=== PATIENT | female | born 1960 | race Caucasian/White ===

== ENCOUNTER 2023-09-15 09:22 | Day surgery (SDC) | payer BC, SELFPAY ==
[2023-09-07 13:51] VITALS: BMI 38.7
[2023-09-15] VITALS (14 sets, daily range): BP systolic 86–132; BP diastolic 43–72; PULSE 50–82; RESP 12–21; TEMP 36.3–37.2; O2SAT 93–100; BMI 38.7
--- NOTE | 2023-09-15 | DI.RAD.S_ITS ---
PROCEDURE: XR HIP W PEL IF DONE LT 2V INDICATIONS: LT HIP ANTERIOR TECHNIQUE: AP pelvis and lateral view of the hip acquired. COMPARISON: [facility], XR PELVIS WITH BILATERAL LATERAL HIPS, 08/14/2023, 8:51. FINDINGS: Bones: Intraoperative image demonstrating left hip arthroplasty. Hardware appears intact with good anatomic alignment. IMPRESSION: Intraoperative left hip arthroplasty. Dictated by: Ana Palmer M.D. on 09/15/2023 at 17:12 Approved by: Ana Palmer M.D. on 09/15/2023 at 17:13
--- NOTE | 2023-09-15 06:00 | DI.RAD.S_ITS ---
PROCEDURE: XR HIP W PEL IF DONE LT 2V INDICATIONS: ELY TECHNIQUE: AP pelvis and lateral view of the hip acquired. COMPARISON: [facility], ANTONIO, XR HIP W PEL IF DONE LT 2V, 09/15/2023, 11:36. FINDINGS: Bones: Patient is status post left hip arthroplasty, with hardware components in expected positions. The hip joint appears congruent. The visualized bony structures appear intact. Soft tissues: Overlying postoperative changes are noted. No suspicious soft tissue densities. IMPRESSION: Expected post-operative appearance of a hip arthroplasty. Near severe degenerative changes are seen at the right hip joint also. Dictated by: Jay Callejas M.D. on 09/15/2023 at 13:37 Approved by: Jay Callejas M.D. on 09/15/2023 at 13:37
[2023-09-15] MEDS: CEFAZOLIN 2 GM/100 ML PREMIX 100 ML IV ×2 (10:00→19:49)
--- NOTE | 2023-09-15 10:13 | PM.PREOP ---
Pre-operative Note Interval Note History & Physical reviewed/Exam performed by Physician: Yes Changes to H&P: No
[2023-09-15] MEDS: ACETAMINOPHEN 325 MG TABLET 975 MG PO (10:16)
[2023-09-15] MEDS: MELOXICAM 7.5 MG TABLET PO (10:16)
[2023-09-15] MEDS: LACTATED RINGERS 1,000 ML 42 ML IV ×2 (10:17→11:46)
[2023-09-15] MEDS: ROPIVACAINE/EPI/CLONIDINE/KET 50 ML SYRINGE INJ (10:35)
[2023-09-15] MEDS: TRANEXAMIC ACID 1,000 MG VIAL 1000 MG INJ (10:35)
--- NOTE | 2023-09-15 11:16 | SUR.OPER ---
Supine on padded [place] table with bilateral legs secured in padded positioning boots and suspended in positioning spars, operative leg in traction per surgeon. Head on one pillow. Arms secured on padded armboards <90 degrees abduction. Padded perineal post in place per surgeon.
[2023-09-15] MEDS: ALBUMIN HUMAN 12.5 GM/50 ML VIAL IV (12:19)
--- NOTE | 2023-09-15 12:53 | P.OP_ITS ---
Operative Date/Time/Diagnoses Date of procedure: 09/15/23 Pre-op diagnosis: Left hip osteoarthritis Post-op diagnosis: same Procedure & Clinicians Procedure: Left uncemented total hip arthroplasty through direct anterior approach Same procedure as scheduled: Yes Surgeon: Connor Garcia Pharmacy Informaticist: Bettye Palmer Anesthesia Type: Spinal, Sedation and Peripheral nerve block Operative Notes Estimated Blood Loss (mL): 450 Procedure in detail: Left Uncemented Direct Anterior Total Hip Arthroplasty: Implants: Left Depuy Total Hip Arthroplasty: * Depuy Star Gription size 58 cup?with 40 mm screw * Depuy Actis femoral stem size 7 high offset? * 36 mm +12 ceramic femoral head? Procedure Summary: This 62-year-old female patient has a BMI of 39 and 2 severely arthritic and painful hips. She plans to undergo a staged bilateral total hip arthroplasty. Today we began with the left side which is more symptomatic side. Surgery was made more challenging by the size of her pannus. We taped this to the medenvision retractor liao on the contralateral side of the table but due to the size of her pannus this caused her body to roll slightly to the nonoperative side. We compensated for this by adjusting the angle of the x-ray beam. Additionally, the size of her thigh made it difficult to manipulate the acetabular component into an appropriate position with a straight handled cup zipper setter chainstitch so I utilized a Fuchs to manipulate the cup into appropriate abduction and anteversion and then used a secondary impactor to impact it into place. Because of that sequence I utilized a screw for supplementary fixation in the acetabular component. I utilized a conjoined tendon release on the femoral side to minimize the amount that the broach would hit the skin in her anterior thigh during broach insertion and removal. The Jori soft tissue retractor did provide protection against severe skin abrasions during the broaching process. I initially trialed with a 6 standard offset stem and a +9 head as the operative side was 11 mm short relative to the nonoperative side which she intends to have replaced in the future and I wanted to ensure that I lengthened her sufficiently. With that construct in place I had instability with external rotation to 115? and appeared to have both decreased offset and decreased length on fluoroscopic images. I therefore transitioned to a high offset neck trial and a +12 head. This resolved the instability with maximum external rotation and improved fluoroscopic parameters. On the AP hip image the broach appeared undersized. This was backed up by the broach being rotationally unstable when I returned to the broaching position. I removed the size 6 broach, removed some lateral bone, and sank a size 7 broach down to the same position the size 6 broach had been in previously when I had done my initial calcar planing. As the size 6 and size 7 broaches have the same neck parameters I placed the final components, a 7 high offset stem and a +12 head. Procedure in Detail: This patient was seen preoperatively and evaluated for hip pain which was refractory to numerous nonoperative treatment modalities. Their hip pain cor related with radiographic changes demonstrating significant degeneration in the hip joint. The risks and benefits of continued nonoperative management versus operative management were discussed at length and all of the patient?s questions were answered. Additional educational materials providing further details beyond our discussion in clinic were provided via a publicly available patient educatio n video which included the incidence of medical complications associated with total hip arthroplasty, reasons for revision following total hip arthroplasty, and patient satisfaction rates following total hip arthroplasty. That video can be accessed at [email or web address] . With this understanding of the risks inherent to the procedure, the patient elected to move forward with operative management. Following preoperative optimization, the patient was scheduled for surgery. The patient was met in the preoperative holding area the day of the procedure and all questions were answered. The patient?s nares were swabbed with betadine in order to decolonize them from MRSA. Informed consent was signed and the operative limb was marked with indelible ink.? The patient was brought back to the operating room where anesthesia was induced. The patient was transferred to the Bradford table and all bony prominences were padded. The operative site was prepped and draped in the usual sterile fashion. Prior to incision, tranexamic acid and cefazolin were administered. Operative templating images were displayed demonstrating the anticipated implant sizes and correct operative extremity. A timeout procedure was performed verifying the patient?s identity, medical comorbidities, allergies, relevant medications, anesthesia type and the surgical plan. All present were in agreement. The assistance of a physician insurance assistant was required for positioning, room setup, soft tissue retraction and wound closure. Without this assistance, the procedure would have been significantly more challenging and time consuming.?? A direct anterior approach to the hip was utilized. This was performed with a longitudinal incision through a Heuter interval. The incision was planned 2 cm distal and 2 cm lateral to the ASIS extending towards the lateral patella, in line with the muscle body of the TFL. Following incision, the subcutaneous tissue was dissected while taking care to avoid injury to the lateral femoral cutaneous nerve. The fascia overlying the TFL was identified by dissecting off the overlying fat and identifying perforating vessels to the TFL. The TFL fascia was incised and dissected away from the medial border of the TFL. A cobra retractor was placed over the superior femoral neck between the abductors and the hip capsule and used to reflect the TFL laterally. A [place] self-retainer was then placed in the distal aspect of the wound between the TFL and the rectus femoris. This was tensioned to open up the direct anterior interval and the lateral circumflex vessels were identified and coagulated using electrocautery. The floor of the TFL fascia was incised, exposing the pericapsular fat overlying the hip capsule. A second cobra retractor was placed on the inferior femoral neck. A double-bent soft tissue retractor was placed on the anterior wall of the acetabulum and used to tension the reflected head of rectus femoris, which was then released in order to limit soft tissue tension. A capsulotomy was made in the midline of the anterior hip capsule in line with the femoral neck ending at the vastus tubercle. The double-bent retractor was removed in order to limit the amount of time that a soft tissue retractor remained on the anterior wall and protect the femoral nerve. Tag stitches were placed in the superior and inferior leaflets of the hip capsule. An Jori soft tissue retractor was introduced over the tag stitches and tensioned in the interval between the rectus femoris and the TFL in order to retract and protect those muscles. The cobra retractors were replaced intracapsularly, with one over the superior neck in the pocket created by the base of the greater trochanter and the other on the femoral head. The capsulotomy was extended laterally to the base of the greater trochanter and medially to the lesser trochanter. This required externally rotating the hip. Once the lesser trochanter had been identified, a neck cut was planned according to measurements from preoperative templating. A ruler was cut at the length measured between the superior aspect of the lesser trochanter and the collar of the prosthesis. This line was extended towards the inferior aspect of the lateral cobra retractor to plan a cut which would leave minimal residual femoral neck laterally. The neck was cut at 60 degrees of external rotation along that line. A second cut was performed to remove a large napkin ring and facilitate head extraction. The napkin ring cut and femoral head were removed.?? A broad anterior wall retractor was placed between the labrum and the anterior capsule so that the anterior capsule would prevent capturing and pinching the femoral nerve anteriorly. An additional retractor was placed on the posterior wall. External rotation and traction were applied through the Bradford table so that the cut surface of the femoral neck would not restrict access to the acetabulum. The labrum was excised sharply and the pulvinar was excised with electrocautery to limit bleeding from branches of the obturator artery. Acetabular reamers were selected based on preoperative templating and measurements of the excised femoral head. These were introduced into the acetabulum. Fluoroscopy was utilized to replicate a standing AP pelvis radiograph by centering over the pelvis, rotating until there was appropriate symmetry between the obturator foramen, and introducing caudal tilt to match the position of the pubic symphysis relative to the sacrococcygeal junction according to the patient?s anatomy. Fluoroscopy was utilized to ensure appropriate reaming depth. Once satisfied with the reaming depth corresponding to the preoperative template and the pinch fit between the columns, an appropriate sized acetabular cup was selected which would provide 1 mm of press-fit. This cup was introduced and manipulated until appropriate abduction and anteversion angles were obtained with careful attention to appropriate abduction and anteversion angles as evaluated by the position of the cup relative to the anterior and posterior jason of the acetabulum and the AP fluoroscopy which recreated the patient?s standing radiograph. The cup was impacted into place. One screw was placed to provide additional fixation. Peripheral osteophytes were removed. The acetabular liner was then placed with care to ensure locking of the locking mechanism.? Attention was then turned to the femur. All retractors were removed, traction was released, a retractor was placed in the interval between the hip capsule and the gluteus minimus, and the hip was externally rotated to 90 degrees. Traction was applied through the Bradford table to tension the lateral capsule and this was released using electrocautery. Traction was released and a Bradford hook was placed posteriorly around the proximal femur at the level of the vastus ridge. The table height was lowered in order to restrict the tension on the anterior structures during hip hyperextension to limit the risk of femoral nerve palsy. With traction off and the hip at 90 degrees of external rotation, the hip was hyperextended and adducted while manually elevating the femur away from the acetabulum with the Bradford hook to ensure it would not be caught behind the greater trochanter. An asymmetric retractor was placed over the calcar and a broad double-pronged retractor was placed over the greater trochanter. The tag stitch capturing the lateral leaflet of the capsule was moved to the medial side, leaving the conjoined and piriformis tendons isolated in the face of the greater trochanter. The hip was externally rotated and elevated. A release of the conjoined tendon was necessary in order to obtain adequate exposure for broaching. The canal was opened with an opening broach and a rasp was used to remove cancellous bone. A rongeur was used to remove the residual lateral bone at the base of the greater trochanter to avoid placing the stem in varus. The femur was then broached to the appropriate sized stem yielding good rotational fit and fill of the canal as well as appropriate version of the stem trial. Neck and head trials were placed, all retractors were removed and the hip was returned to neutral abduction and extension. I then reduced the hip. I initially trialed with a 6 standard offset stem and a +9 head as the operative side was 11 mm short relative to the nonoperative side which she intends to have replaced in the future and I wanted to ensure that I lengthened her sufficiently. With that construct in place I had instability with external rotation to 115? and appeared to have both decreased offset and decreased length on fluoroscopic images. I therefore transitioned to a high offset neck trial and a +12 head. This resolved the instability with maximum external rotation and improved fluoroscopic parameters. On the AP hip image the broach appeared undersized. This was backed up by the broach being rotationally unstable when I returned to the broaching position. I removed the size 6 broach, removed some lateral bone, and sank a size 7 broach down to the same position the size 6 broach had been in previously when I had done my initial calcar planing. As the size 6 and size 7 broaches have the same neck parameters I placed the final components, a 7 high offset stem and a +12 head. The ceramic head was impacted onto a clean dry trunnion All retractors were removed and the hip was reduced. A dilute mixture of betadine and peroxide was used to bathe the soft tissues during final flu oroscopic assessment. Appropriate component positioning was confirmed on an AP pelvis radiograph with the operative and nonoperative legs in 40 degrees of external rotation, evaluating leg length and offset. Appropriate stem fill was evaluated on AP and lateral hip radiographs. No fractures were identified on these radiographs. There was no hip instability with maximum external rotation as well as a 45 degree drop test. The hip was copiously irrigated with pulse lavage. The capsule was closed with absorbable interrupted suture. The TFL fascia was closed with barbed suture while carefully protecting the lateral femoral cutaneous nerve from entrapment. A mixture of Ropivacaine, Epinephrine, Clonidine and Toradol was infiltrated throughout the soft tissues. The skin was closed with 2-0 and 3-0 sutures. Surgical glue was applied and a soft dressing was placed.??The sponge, instrument and needle counts were reported as being correct at the end of the case.??No obvious complications occurred. The patient was transferred from the Bradford table back to a stretcher. The patient emerged from anesthesia without difficulty and was taken to the PACU in a stable condition.? Plan for aftercare: * Anterior hip precautions * Weightbearing as tolerated * Aspirin 81 twice per day for DVT prophylaxis * Anticipate discharge home today or tomorrow depending on how she mobilizes this afternoon * Change into normal clothes upon arrival on the hospital floor * Mobilize in the halls as much as is logistically possible. If physical therapy is unavailable for mobilization, then patient should mobilize with nursing staff * Multimodal pain regimen with no IV opioids ordered * Apply ice machine to operative hip. Ensure that sufficient ice is in the chamber for the pad to remain cold * Follow up at [facility] in 2 weeks * Detailed postoperative instructions available at [email or web address]
[2023-09-15] MEDS: fentaNYL 100 MCG/2 ML INJ IV ×2 (13:18→13:23)
[2023-09-15] MEDS: OXYCODONE IR 5 MG TABLET PO ×3 (13:33→22:37)
[2023-09-15] MEDS: HYDROMORPHONE 1 MG INJ IV (13:35)
[2023-09-15] MEDS: IBUPROFEN 600 MG TABLET PO ×2 (14:56→19:48)
[2023-09-15] MEDS: ACETAMINOPHEN 325 MG TABLET 650 MG PO ×2 (14:57→19:48)
[2023-09-15] MEDS: LACTATED RINGERS 1,000 ML 100 ML IV (14:57)
[2023-09-15] MEDS: ONDANSETRON 4 MG ODT PO (15:15)
--- NOTE | 2023-09-15 16:13 | PT.IIE ---
Current Diagnoses Unilateral primary osteoarthritis, left hip (09/15/23) Surgery Performed Operation Date: 09/15/23 10:45 Actual Procedures p Total Hip Arthroplasty/Anterior Approach(Left) - Connor Garcia MD Surgical History (Last Updated 09/07/23 @ 14:10 by Jojo Vann, RN) Hx of arthroscopy of left knee (~2003) Hx of cholecystectomy (~2001) Hx of tonsillectomy Medical History (Last Updated 09/07/23 @ 14:10 by Jojo Vann RN) Rogers's palsy (~2018) Glaucoma Osteoarthritis Physical Therapy Inpatient Evaluation/Re-Eval M1 PT/OT-IP Prior Functional Status Start: 09/15/23 17:40 Freq: NEEDED Status: Active Protocol: Document 09/15/23 16:13 AB (Rec: 09/15/23 17:58 AB [id number]) Medical Review Prior Functional Status Medical History Reviewed Yes Communication able to make needs known; pt with slow responses to questions and instructions Mobility and Gait pt stated that she was modified independent with all mobilities and ambulation without AD but started using a SPC for outdoor mobility for 1 month already and had used a 4WW for indoor mobility the last 2 weeks due to hip pain Social History Household Members spouse Living Arrangements House Number of Floors (Floors) One Floor Number of Stairs To Enter/Railing? 2 steps without rails to enter : has 2 grab bars attached to edge of door Home Environment Standard Height Toilet,Walk in Shower Home Equipment Four Wheel Walker,Straight Cane Additional Social History Comment pt has an adjustable bed; if needed , pt has a chair recliner that she has been sleeping on for a few months now but prefers to be able to use her bed again M2 PT-IP Current Condition Start: 09/15/23 17:40 Freq: NEEDED Status: Active Protocol: Document 09/15/23 16:13 AB (Rec: 09/15/23 17:58 AB [id number]) Physical Therapy Current Condition Current Condition Evaluation Date 09/15/23 Treatment Diagnosis s/p L ELY anterior; difficulty in walking Onset Date 09/15/23 M3 PT-IP Subjective Start: 09/15/23 17:40 Freq: NEEDED Status: Active Protocol: Document 09/15/23 16:13 AB (Rec: 09/15/23 17:58 AB [id number]) Subjective Physical Therapy Visit Type Type Initial Evaluation Visit Start Time 16:13 Visit Stop Time 17:35 Number of LIQUOR DEPARTMENT MANAGER Visits 0 Physical Therapy Visit Comments Patient Comments agreeable to do PT Therapy Pain Assessment Pain When Pain Assessed At Rest Pain Present Pain Present Pain Reported Location Left Hip Scale Used pain scale not stated Pain Behaviors Guarding,Holding Area Pain Management Techniques Apply Cold,Distraction, Modification of Treatment,Re- positioning,Timing of Activity with Medications M4 PT-IP Mobility and Gait Start: 09/15/23 17:40 Freq: NEEDED Status: Active Protocol: Document 09/15/23 16:13 AB (Rec: 09/15/23 17:58 AB [id number]) PT-Bed Mobility Assessment Supine to Sit Supine to Sit Maximum Assistance Sit to Supine Sit to Supine Maximum Assistance PT-Transfer Assessment Sit to and From Stand Sit to and from Stand Moderate Assistance,1 Person Assistance,Use of Upper Extremities Equipment Transfer Assistive Device Gait Belt,Front Wheeled Walker Orthotic/Prosthetic Devices or Brace: No Comments Mobility Comments pt supine in bed and spouse in room with pt. pt stated that she is not sure if she wants to move. encouraged pt and agreed. obtained PLOF and home set up from pt. post-op folder provided and reviewed contents to pt. educated pt and spouse regarding pt's L hip anterior precautions. pt requiring cues to recall. BP in supine: 129/79. pt completed supine to sit max A and max cues. pt usually gets in/out towards R side of bed. pt able to sit on EOB SBA. c /o lightheadedness. BP in sittin/69. pt sat for a few more minutes and BP checked again: 135/66. completed sit to stand mod A and cues. pt was able to march in place mod A. able to take steps forward and then backwards 2 ft using FWW mod A . pt took side steps towards HOB for positioning mod A and cues using fWW. pt completed sit to supine max A and max cues. positioned pt in bed. call light and table placed within reach. Gait Assessment Gait Gait Assistance Required: Moderate Assistance,1 Person Assist Distance (Feet) 2 Able to Maintain Weight Bearing Status Yes During Gait Assistive Devices Assistive Device Gait Belt,Front Wheeled Walker Orthotic/Prosthetic Devices or Brace: No Gait Deviations General Gait Pattern Decreased Feet Clearance Factors Limiting Gait Function Factors Limiting Gait Function Decreased Activity Tolerance, Decreased Strength,Difficulty Following Directions,Limited Range of Motion,Pain,Poor Balance,Poor Safety Awareness PT-Balance Assessment Sitting Balance and Reactions Static Sitting Balance Ability Good Dynamic Sitting Balance Ability Good Standing Balance and Reactions Static Standing Balance Ability Fair Dynamic Standing Balance Ability Poor Device Used FWW M5 PT-IP Objective Assessments Start: 09/15/23 17:40 Freq: NEEDED Status: Active Protocol: Document 09/15/23 16:13 AB (Rec: 09/15/23 17:58 AB [id number]) Orientation Orientation/Cognition Level of Alertness Alert Orientation Name,Place,Situation Language Function Ability No Deficits Noted Safety Awareness Decreased Safety Awareness Gross Range of Motion Lower Extremity ROM Assessment Within Functional Limits Strength Lower Extremity Strength Assessment Bilaterally Impaired Comments Strength Comments RLE: 4-/5 LLE: 3+/5 Coordination Assessment Gross Coordination Gross Coordination WNL Muscle Tone Muscle Tone WNL Yes M6 PT-IP Treatment Start: 09/15/23 17:40 Freq: NEEDED Status: Active Protocol: Document 09/15/23 16:13 AB (Rec: 09/15/23 17:58 AB [id number]) Physical Therapy Treatment Exercises Exercises Heel Slides Education Education Provided Precautions,Weight Bearing Status,Post-Op Packet,Safety M7 PT-IP Assessment and Plan Start: 09/15/23 17:40 Freq: NEEDED Status: Active Protocol: Document 09/15/23 16:13 AB (Rec: 09/15/23 17:58 AB [id number]) PT Summary Assessment and Plan Potential Rehabilitation Potential Fair Status of Condition at Evaluation Evolving Summary Impairments Pain,ROM,Strength,Balance, Coordination,Sensation,Tone, Cognition,Bed Mobility, Transfers,Gait,Activity Tolerance Assessment Summary pt is a 62 y/o F s/p L ELY anterior approach POD 0. pt has L hip anterior precautions and is WBAT. pt requiring max A for bed mobility, mod A for sit to stand and was able to take a few step using FWW mod A ~ 2 ft. pt just had surgery this morning and still had difficulty following directions with slower responses and cues for precautions. Pt will likely progress in mobility during hospital stay. caregiver training set up for tomorrow at 1030 am. will continue to assess progress. Goals Bed Mobility Goal Minimal Assistance Transfer Goal Standby Assistance,Front Wheeled Walker Gait Goal Standby Assistance,Front Wheel Walker Gait Distance 150 Other Goals improve ambulation using 4WW/ LRAD ~ 200 ft mod I up/down 2 steps using SPC/OUTPATIENT SERVICES DIRECTOR CGA Days to Meet Goals 5 Frequency of Treatment Frequency Of Treatment Twice a Day Treatment Plan Physical Therapy Treatment Plan Bed Mobility Training,Transfer Training,Gait Training, Therapeutic Exercise,Balance Retraining,Post Op Education, Discharge Planning,Hot or Cold Pack,Neuromuscular Re-ed, Coordination Retraining,Manual Therapy Precautions Anterior Hip Precautions No Hip Extension,No Hip External Rotation Weight Bearing Status Weight Bearing Status Weight Bear as Tolerated Allowed Weight Bearing Amount (enter % LLE WBAT or #) (%) Recommendations To Nursing Amount of Assist Needed 1 Person Assist Discharge Recommendations PT Discharge Recommendations Home with Assistance,Home Health,Outpatient PT Equipment Needed for Home Before FWW Discharge Transportation Needs at Discharge Private Vehicle,Wheelchair/ Cabulance
[2023-09-15] MEDS: DOCUSATE 100 MG CAPSULE PO (20:42)
[2023-09-15] MEDS: ASPIRIN EC 81 MG TABLET PO (20:42)
--- NOTE | 2023-09-15 20:43 | PM.PN.1 ---
Subjective Subjective Interval history: Patient seen postoperatively. Resting comfortably. No acute distress. Pain well controlled. Ice placed on thigh. Dressing clean dry and intact. Flexing and extending hallux and ankle. Active quadriceps function. Reports that she has not ambulated much yet. Made some progress with physical therapy. Plan for additional mobilization tomorrow morning and discharge home tomorrow Exam Vital Signs (past 8 hours): - 09/15/23 13:09 09/15/23 13:14 09/15/23 13:19 Temperature 98.6 F Pulse Rate 70 67 59 L Respiratory Rate 18 12 21 Blood Pressure 90/48 L 95/49 L 97/43 L Pulse Oximetry 93 96 97 Oxygen Delivery Method Room Air Room Air Room Air Oxygen Flow Rate 09/15/23 13:24 09/15/23 13:30 09/15/23 13:45 Temperature 98.0 F Pulse Rate 56 L 59 L 57 L Respiratory Rate 18 12 16 Blood Pressure 86/43 L 98/50 L 101/43 L Pulse Oximetry 97 99 95 Oxygen Delivery Method Nasal Cannula Room Air Oxygen Flow Rate 2 09/15/23 14:04 09/15/23 14:10 09/15/23 14:30 Temperature 97.8 F Pulse Rate 59 L 59 L 55 L Respiratory Rate 16 16 16 Blood Pressure 104/54 L 119/62 102/68 Pulse Oximetry 99 96 95 Oxygen Delivery Method Room Air Oxygen Flow Rate 09/15/23 15:00 09/15/23 16:00 09/15/23 17:00 Temperature Pulse Rate 50 L 58 L 61 Respiratory Rate 16 16 16 Blood Pressure 112/64 128/72 132/58 L Pulse Oximetry 100 99 99 Oxygen Delivery Method Oxygen Flow Rate 09/15/23 20:00 Temperature 97.3 F L Pulse Rate 82 Respiratory Rate 17 Blood Pressure 121/53 L Pulse Oximetry 97 Oxygen Delivery Method Oxygen Flow Rate 0 Oxygen Delivery Method Room Air Oxygen Flow Rate 0 PFSH Medical History (Updated 09/07/23 @ 14:10 by Jojo Vann RN) Osteoarthritis 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
[2023-09-16] MEDS: CEFAZOLIN 2 GM/100 ML PREMIX 100 ML IV (02:48)
[2023-09-16] MEDS: ACETAMINOPHEN 325 MG TABLET 650 MG PO ×2 (02:51→08:33)
[2023-09-16] MEDS: IBUPROFEN 600 MG TABLET PO ×2 (02:51→08:32)
[2023-09-16 06:05] LABS: Hematocrit 27.4 % (36-46); Hemoglobin 9.6 g/dL (12.0-16.0)
[2023-09-16] MEDS: OXYCODONE IR 5 MG TABLET PO ×2 (06:51→12:00)
[2023-09-16 08:00] VITALS: BP 103/61; PULSE 72; RESP 16; TEMP 36.2; O2SAT 98
[2023-09-16] MEDS: ASPIRIN EC 81 MG TABLET PO (08:32)
[2023-09-16] MEDS: DOCUSATE 100 MG CAPSULE PO (08:32)
[2023-09-16] MEDS: DORZOLAMIDE/TIMOLOL OPHTH 10 ML 1 DROPS EYE-BOTH (08:33)
--- NOTE | 2023-09-16 09:00 | P.DS_ITS ---
History of Present Illness History of Present Illness Chief complaint: Left ELY anterior *OPB* Narrative: Samantha is a pleasant 62 year old female who is POD#1 s/p L ELY by Dr. Garcia. Patient states she is doing very well today, pain is mild to moderate and well- controlled with oral pain medication. Urinating well without issue. Did some mobilization yesterday but we will need to work with PT again today prior to discharge. Endorses some weakness/stiffness in the left hip, discussed this is normal for POD#1 s/p ELY d/t swelling, pain. Lives at home with who is willing and able to aid in patient's postop recovery, she also has a son who lives nearby for additional assistance if needed. She has ice machine, 2 walkers, shower chair and potty riser at home already. She has her postop physical therapy appointments scheduled with [facility] on [place]. Has picked up her postop pain medications already as well. VSS. Denies fever, chills, chest pain, shortness breath, nausea, vomiting. Operative Date/Time/Diagnoses Date of procedure: 09/15/23 Pre-op diagnosis: Left hip osteoarthritis Post-op diagnosis: same Procedure & Clinicians Procedure: Left uncemented total hip arthroplasty through direct anterior approach Same procedure as scheduled: Yes Surgeon: Connor Garcia Collective Bargaining Specialist: Bettye Palmer Anesthesia Type: Spinal, Sedation and Peripheral nerve block Operative Notes Estimated Blood Loss (mL): 450 Procedure in detail: Left Uncemented Direct Anterior Total Hip Arthroplasty: Implants: Left Depuy Total Hip Arthroplasty: * Depuy [place] Gription size 58 cup?with 40 mm screw * Depuy Actis femoral stem size 7 high offset? * 36 mm +12 ceramic femoral head? Discharge Providers Provider Discharge Date: 09/16/23 Primary care physician: Nadine Pitts MD Consults: 09/15/23 06:00 Consult to Anesthesiology Routine Comment: Consulting Provider: Anesthesiologist Reason for consultation: Regional block for post operative pain control Has provider been notified: No 09/15/23 14:09 Consult to Discharge Planning Routine Comment: Consult to Occupational Therapy Evaluate & Treat Comment: Physician Instructions: Evaluate and treat Consult to Physical Therapy Evaluate & Treat Comment: Physician Instructions: post op ELY protocol Discharge provider: Bettye Palmer PA-C Summary Hospital Course Discharge Diagnosis: Stable status post left ELY Hospital Course: Uncomplicated hospital course Exam Vital Signs (past 8 hours): Oxygen Delivery Method Room Air Oxygen Flow Rate 0 Narrative Exam Narrative: Lying in bed comfortably during her interview today. Awake, alert, oriented x3. SCDs on and functioning. Resp Effort & Inspection: normal respiratory effort Cardio Other: Brisk capillary refill. Regular rate. Skin Other: No rash. Extrem Other: Intact, clean, dry and functioning ian dressing in place over the left anterior hip. 5/5 strength with DF, PF, EHL. Calf soft and nontender bilaterally Gross sensation intact throughout bilateral lower extremities. Psych Appearance: grossly normal Speech and Movement: speech and movement normal Objective Labs 09/16/23 05:47 Labs: Laboratory Results - last 24 hr 09/16/23 05:47 Hgb 9.6 L Hct 27.4 L PFSH Medical History (Updated 09/07/23 @ 14:10 by Jojo Vann RN) Osteoarthritis 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 Discharge Assessment & Plan Assessment and Plan Assessment: Left hip osteoarthritis status post left total hip arthroplasty, stable. Plan of Treatment: 1) plan to discharge to home today with /family pending PT evaluation. 2) continue multimodal pain management with ice to the hip for additional pain control. Has postop pain medications at home already. 3) ASA b.i.d. for DVT prophylaxis. 4) Start outpatient physical therapy to work on range of motion and mobility. Weightbearing as tolerated, maintain anterior hip precautions. 5) keep dressing intact, clean, dry until 2 week postop appointment. No soaking the incision site in pools or tubs. No topical ointments or creams to the incision site. 5) Follow up at [facility] orthopedics in 2 weeks for a postop appointment and wound check. All patient's questions were answered, she demonstrates understanding and is in agreement with the plan. Call our office if any questions or concerns arise. Discharge Plan Discharge Plan Patient Disposition: Home Provider Discharge Comment: [email or web address] Discharge orders & Medications Discharge Orders: Discharge (Order); Ordered 09/16/23 Ordered By: Bettye Palmer Prescriptions: New aspirin [Adult Low Dose Aspirin] 81 mg tablet,delayed release (DR/EC) 81 mg PO BID Qty: 90 0RF docusate sodium 100 mg Capsule 100 mg PO BID PRN (Reason: constipation) Qty: 60 0RF ondansetron 4 mg Tablet,Disintegrating 4 mg PO Q8H PRN (Reason: Nausea) Qty: 10 0RF oxycodone 5 mg Tablet 5 mg PO Q4-6H PRN (Reason: Pain, Severe (7-10)) Qty: 30 0RF Continued acetaminophen 500 mg Tablet 500 - 1,500 mg PO TID PRN (Reason: Pain) dorzolamide-timolol 22.3-6.8 mg/mL drops 6.8 drp EYE-BOTH DAILY meloxicam 15 mg tablet 15 mg PO DAILY Follow up/Referrals: Nadine Pitts MD [Primary Care Provider] - Connor Garcia MD [Physician] - (Follow up at [facility] as scheduled in 2 weeks. 09/28/2023 at 1:00 p.m. ) Diet/Activity/Treatments Diet: Diet as Tolerated Activity: Weightbearing as tolerated, maintain anterior hip precautions. Work with outpatient physical therapy to improve strength and mobility. Cold/Heat Therapy: Ice to the hip for additional pain control Skin/Wound/Dressing Care Report to your healthcare provider any signs of infection, such as:: chills, fever, night sweats, unusual drainage and unusual redness Dressing: Keep dressing intact, clean and dry until 2 week post-op appointment. No soaking the incision site in pools or tubs. No topical ointments or creams to the incision site. Visit Report/Discharge Packet Instructions: DI for Hip Replacement Stand Alone Forms: Patient Portal/API Discharge Data Primary Care Provider: Nadine Pitts Attending Provider: Connor Garcia
--- NOTE | 2023-09-16 10:33 | PT.IPTN ---
Current Diagnoses Unilateral primary osteoarthritis, left hip (09/15/23) Surgery Performed Operation Date: 09/15/23 10:45 Actual Procedures p Total Hip Arthroplasty/Anterior Approach(Left) - Connor Garcia MD Physical Therapy Treatment Note M2 PT-IP Current Condition Start: 09/15/23 17:40 Freq: NEEDED Status: Active Protocol: Document 09/15/23 16:13 AB (Rec: 09/15/23 17:58 AB [id number]) Physical Therapy Current Condition Current Condition Evaluation Date 09/15/23 Treatment Diagnosis s/p L ELY anterior; difficulty in walking Onset Date 09/15/23 M3 PT-IP Subjective Start: 09/15/23 17:40 Freq: NEEDED Status: Active Protocol: Document 09/16/23 11:43 TS (Rec: 09/16/23 11:51 TS [id number]) Subjective Physical Therapy Visit Type Type Treatment Note Visit Start Time 10:33 Visit Stop Time 11:11 Number of PRINCIPAL CLERK Visits 1 Physical Therapy Visit Comments Patient Comments Pt found resting in bed, spouse in room, pt is agreeable to PT. Therapy Pain Assessment Pain When Pain Assessed At Rest Pain Present Pain Present Pain Reported M4 PT-IP Mobility and Gait Start: 09/15/23 17:40 Freq: NEEDED Status: Active Protocol: Document 09/16/23 11:43 TS (Rec: 09/16/23 11:51 TS [id number]) PT-Bed Mobility Assessment Supine to Sit Supine to Sit Minimal Assistance Sit to Supine Sit to Supine Minimal Assistance,1 Person Assistance Scooting Scooting to Edge of Bed Contact Guard Assistance PT-Transfer Assessment Sit to and From Stand Sit to and from Stand Minimal Assistance,1 Person Assistance,Use of Upper Extremities Comments Mobility Comments PT recalled 2/2 hip precautions. Supine to sit Guerita for LLE, spouse assisted LLE to EOB. STS from bed x2 Guerita with FWW, spouse was instrcuted in and donned gait belt. She ambulated with a slow step to gait ~40'CGA from spouse, pt demonstrated good carryover. She performed stairs x2 on platform step with CUSTOMER ENGAGEMENT REPRESENTATIVE from spouse and therapist Susie. Sit to supine into bed Guerita for LLE. Pt was left in bed, RN notified. Gait Assessment Gait Gait Assistance Required: Contact Guard Assist,1 Person Assist Distance (Feet) 40 Able to Maintain Weight Bearing Status Yes During Gait Assistive Devices Assistive Device Gait Belt,Front Wheeled Walker Orthotic/Prosthetic Devices or Brace: No Gait Deviations General Gait Pattern Antalgic,Decreased Stride Length,Decreased Feet Clearance,Step-to Gait Factors Limiting Gait Function Factors Limiting Gait Function Decreased Activity Tolerance, Decreased Strength,Difficulty Following Directions,Limited Range of Motion,Pain,Poor Balance,Poor Safety Awareness Comments Gait Comments See mobility comments PT-Balance Assessment Sitting Balance and Reactions Static Sitting Balance Ability Good Dynamic Sitting Balance Ability Fair Standing Balance and Reactions Static Standing Balance Ability Fair Dynamic Standing Balance Ability Fair Device Used FWW M5 PT-IP Objective Assessments Start: 09/15/23 17:40 Freq: NEEDED Status: Active Protocol: Document 09/15/23 16:13 AB (Rec: 09/15/23 17:58 AB [id number]) Orientation Orientation/Cognition Level of Alertness Alert Orientation Name,Place,Situation Language Function Ability No Deficits Noted Safety Awareness Decreased Safety Awareness Gross Range of Motion Lower Extremity ROM Assessment Within Functional Limits Strength Lower Extremity Strength Assessment Bilaterally Impaired Comments Strength Comments RLE: 4-/5 LLE: 3+/5 Coordination Assessment Gross Coordination Gross Coordination WNL Muscle Tone Muscle Tone WNL Yes M6 PT-IP Treatment Start: 09/15/23 17:40 Freq: NEEDED Status: Active Protocol: Document 09/16/23 11:43 TS (Rec: 09/16/23 11:51 [id number]) Physical Therapy Treatment Education Education Provided Precautions,Weight Bearing Status,Post-Op Packet,Safety M7 PT-IP Assessment and Plan Start: 09/15/23 17:40 Freq: NEEDED Status: Active Protocol: Document 09/16/23 11:43 TS (Rec: 09/16/23 11:51 [id number]) PT Summary Assessment and Plan Potential Rehabilitation Potential Fair Summary Impairments Pain,ROM,Strength,Balance, Coordination,Sensation,Tone, Cognition,Bed Mobility, Transfers,Gait,Activity Tolerance Progress Towards Goals Progressing Toward Goals Assessment Summary Samantha is making progress with her mobility. She is Guerita for bed mobility and Guerita for STS with FWW. She progressed her gait to ~40'CGA with FWW. She performed stairs x2 with CUSTOMER ENGAGEMENT REPRESENTATIVE ModA, pt had no buckling or LOB. Spouse was instructed in and performed bed mobility, gait belt, ambulation and stair training. PT is recommending Home with 21/11 and outpatient PT. Goals Bed Mobility Goal Minimal Assistance Transfer Goal Standby Assistance,Front Wheeled Walker Gait Goal Standby Assistance,Front Wheel Walker Gait Distance 150 Other Goals improve ambulation using 4WW/ LRAD ~ 200 ft mod I up/down 2 steps using SPC/CUSTOMER ENGAGEMENT REPRESENTATIVE CGA Days to Meet Goals 5 Frequency of Treatment Frequency Of Treatment Twice a Day Treatment Plan Physical Therapy Treatment Plan Bed Mobility Training,Transfer Training,Gait Training, Therapeutic Exercise,Balance Retraining,Post Op Education, Discharge Planning,Hot or Cold Pack,Neuromuscular Re-ed, Coordination Retraining,Manual Therapy Precautions Anterior Hip Precautions No Hip Extension,No Hip External Rotation Weight Bearing Status Weight Bearing Status Weight Bear as Tolerated Allowed Weight Bearing Amount (enter % LLE WBAT or #) (%) Recommendations To Nursing Amount of Assist Needed 1 Person Assist Discharge Recommendations PT Discharge Recommendations Home with 21/11 Assist Available,Outpatient PT Equipment Needed for Home Before FWW Discharge Transportation Needs at Discharge Private Vehicle,Wheelchair/ Cabulance
--- NOTE | 2023-09-16 10:48 | CM.DANOTE ---
Initial DCP Assessment Visit Note Reviewed EMR and team rounds for status updates. Met with pt at bedside to introduce self and role, pt was found to be resting comfortably, expressing readiness to d/c home after working with PT and her spouse with caregiver training. Pt and spouse reside in their own home independently, her spouse will transport her home after PT this morning. Payor: out of state [employer] Attending: Dr. Garcia Pt is a 62 year-old F post-op day 1 following her L-total hip arthroplasty surgery. She shares that once this hip heals, that she will also be getting her R-hip done as well. Pt's spouse went and got her all of the DME yesterday that she will need for home recovery, and she already has a plan for f/c wound check visit with Ortho. She denies any d/c resources or needs from this PSYCHOLOGICAL OPERATIONS OFFICER at this time. Will plan to continue to follow her until she leaves should she need any further assistance. 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 No Advance Directives on File No History Provided By Patient,Medical Record Has Patient been admitted in last 30 No days? Prior Living Arrangements House Household Members spouse Type of transporation used prior to Drives own vehicle admit Independent with ADL's No: modified independent w/4- WW Is patient alert and oriented? Yes DME Already Rented / Owned Bath Bench,Elevated Toilet Seat,FWW / Walker Patient/Family Preference OP PT Therapy Barriers to Discharge No Discharge Plan Home Referrals Initiated None needed Review Status In Process Please Provide Date Initial DC 09/16/23 Assessment Was Performed Pre-Anesthesia Assessment Start: 09/07/23 13:51 Freq: Status: Complete Protocol: Document 09/07/23 13:51 CAB (Rec: 09/07/23 14:32 CAB [id number]) Pre-Anesthesia Assessment Patient Information Reviewed Via Phone Assessment Assessment Completed With Patient Diagnostic Results BMP/CMP,CBC,EKG Comment Outside labs/EKG scanned Primary Care Provider Nadine Pitts Comment PCP visit 07/04/23, clearance form 08/14/23 scanned and in surgery folder Seen Specialist in Last 12 Months Yes Specialist Seen Opthamologist/Asphalt Surface Heater Operator, Orthopedist Primary Language Irish Underwriting Support Manager Required No Height 167.64 cm Weight 108.862 kg Body Mass Index (BMI) 38.7 Hearing Ability Normal Visual Assist Glasses Dentition Type Teeth, Natural Present Barriers to Learning None Hx Anesthesia Reactions No Hx Family Anesthesia Reaction No Hx Malignant Hyperthermia No Hx Blood Transfusions No Anesthesia Review Requested No Wrapping Clerk No alcohol intake current alcohol intake frequency holidays/special occasions only Smoking Status Never smoker Substance Use Type does not use Pain Present Pain Reported Musculoskeletal Symptoms Abnormal Gait,Difficulty Walking,Joint Pain History of Falling (Recent or History of No ) Patient is completely paralyzed or No completely immobile Prosthesis or Orthotic Device Cane,Front Wheel Walker Mental Status Oriented to own ability Is patient on oxygen? No Does patient have ALVARENGA/SOB No Hx Sleep Apnea No Currently Taking a Beta Han No Hx Chest Pain No Hx SOB No Hx Syncope or Dizziness No Anti-Coagulant Therapy No Has a Qualification Engineer No Cardiac Testing No Hx Pacemaker/ICD No Pacemaker Rep Required? No Cardiac Clearance Received No Diet Type At Home Regular Dysphagia No Gastrointestinal Symptoms None Urinary Catheter Present No Hx Urinary Self Catheterization No Diabetes No HgbA1C 5.2 Date 08/15/23 Patient No Lactating No Hx Drug Resistant Organism No Presence of External or Internal Medical No Devices Received a COVID vaccine? Yes Received all doses? No Marital Status Lives With spouse Current Living Arrangements House Number of Floors (Floors) One Floor Number of Stairs To Enter/Railing? 2 Support System Spouse Does the Patient Have Assistance After Yes Surgery Patient Discharge Plan Description Return Home Comment Pt advised same day surgery per surgeon Feels Safe in Current Environment Yes Been Physically Hurt or Threatened By a No Person in Current Environment Do you have thoughts of harming yourself None or others? Are you currently considering suicide? No Do you have a plan to hurt yourself or No Plan others? Do You Have Any Spiritual Beliefs That No May Affect Your HC Choices? Do You Have Any Cultural Practices That No May Affect Your HC Choices? Comment Religious Who Can We Speak to About Patient's Care Family, friends Identifying Code for Release of Patient Declines to issue Information Health Care Proxy/Next of Kin Valentino () Health Care Proxy Emergency Contact Name Jus Aguirre (son) Emergency Contact Advance Directives? No Power of Hoop Punch And Coiler Operator Helper No PAC Instructions Do not shave/clip surgical site,Durable medical equipment ,Medications to take/avoid, Nasal antibiotic,No ETOH/ petroleum product on skin DOS, NPO,Pre-surgical wash,Sensory aids,Sturdy shoes/comfortable clothes,Do not bring valuables and remove jewelry
== END 2023-09-16 14:40 | disposition home or self-care (01) ==
LOC: OR 09:23 → AC 09:24
PROVIDERS: PCP Family Medicine; Referring Provider Orthopaedic Surgery Sports Medicine; Visit Provider Orthopaedic Surgery Adult Reconstructive Orthopaedic Surgery
PROC: (CPT 27130; principal; 2023-09-15 10:45)
DX: M16.12 Unilateral primary osteoarthritis, left hip (principal)
CPT/HCPCS: 27130; 36415; 73502; 76000; 85014; 85018; 97116; 97162; 97530; C1776; J0690; J1170; J2250; J2704; J3010; P9041

== ENCOUNTER 2023-12-22 06:05 | Day surgery (SDC) | payer BC, SELFPAY ==
[2023-09-15 14:35] VITALS: BMI 38.7
[2023-12-11 13:29] VITALS: BMI 38.7
[2023-12-22] VITALS (16 sets, daily range): BP systolic 83–126; BP diastolic 32–82; PULSE 70–92; RESP 10–18; TEMP 36.1–37.1; O2SAT 93–98; BMI 36.3
--- NOTE | 2023-12-22 | DI.RAD.S_ITS ---
PROCEDURE: XR HIP W PEL IF DONE RT 2V INDICATIONS: RT ANTERIOR HIP TECHNIQUE: AP pelvis and lateral view of the hip acquired. COMPARISON: [facility], [place], XR HIP W PEL IF DONE LT 2V, 09/15/2023, 13:10. FINDINGS: For operative images demonstrating new right hip arthroplasty. There is good anatomic alignment. Stable appearance of previously placed left hip arthroplasty. IMPRESSION: Intraoperative right hip arthroplasty placement. Dictated by: Ana Palmer M.D. on 12/22/2023 at 21:34 Approved by: Ana Palmer M.D. on 12/22/2023 at 21:36
--- NOTE | 2023-12-22 06:00 | DI.RAD.S_ITS ---
PROCEDURE: XR HIP W PEL IF DONE RT 2V INDICATIONS: post op total right hip TECHNIQUE: 2 views of the hip were acquired. [facility], 12/22/[facility]23, 9:27. [facility], [place], XR HIP W PEL IF DONE LT 2V, 09/15/2023, 13:10. FINDINGS: Bones: Bilateral hip arthroplasty is in place. No displaced fracture or dislocation. Soft tissues: Postoperative changes. IMPRESSION: Bilateral hip arthroplasty is in place. Postoperative changes seen on the right. Dictated by: Timbo Espino M.D. on 12/22/2023 at 11:25 Approved by: Timbo Espino M.D. on 12/22/2023 at 11:26
[2023-12-22] MEDS: MELOXICAM 7.5 MG TABLET 15 MG PO (06:54)
[2023-12-22] MEDS: ACETAMINOPHEN 325 MG TABLET 975 MG PO (06:54)
[2023-12-22] MEDS: LACTATED RINGERS 1,000 ML 42 ML IV ×2 (06:55→09:26)
--- NOTE | 2023-12-22 07:52 | PM.PREOP ---
Pre-operative Note Interval Note History & Physical reviewed/Exam performed by Physician: Yes Changes to H&P: No
[2023-12-22] MEDS: CEFAZOLIN 2 GM/100 ML PREMIX 100 ML IV ×2 (08:17→16:12)
[2023-12-22] MEDS: TRANEXAMIC ACID 1,000 MG VIAL 1000 MG INJ ×2 (08:19→09:40)
--- NOTE | 2023-12-22 08:44 | SUR.OPER ---
Supine on padded [place] table with bilateral legs secured in padded positioning boots and suspended in positioning spars, operative leg in traction per surgeon. Head on one pillow. Arm on non-operative side secured on padded armboard <90 degrees abduction. Arm on operative side padded and resting across chest then secured with tape over sheet. Padded perineal post in place per surgeon.
[2023-12-22] MEDS: ROPIVACAINE/EPI/CLONIDINE/KET 50 ML SYRINGE INJ (08:58)
--- NOTE | 2023-12-22 10:01 | P.OP_ITS ---
Operative Date/Time/Diagnoses Date of procedure: 12/22/23 Pre-op diagnosis: Right hip osteoarthritis Post-op diagnosis: same Procedure & Clinicians Procedure: Uncemented anterior right total hip arthroplasty Same procedure as scheduled: Yes Surgeon: Connor Garcia Flagman: Bettye Palmer Anesthesia Type: Spinal, Sedation and Local Operative Notes Estimated Blood Loss (mL): 200 Procedure in detail: Right Uncemented Direct Anterior Depuy Total Hip Arthroplasty: Implants: * Cisco Gription size 58 cup? * Actis femoral stem size 7 standard offset? * 36 mm +5 ceramic femoral head? Procedure Summary: This 63-year-old female patient had previously undergone a left total hip arthroplasty performed by myself. During that procedure her pannus cause difficulties with positioning which caused her to roll away from the operative side necessitating adjustments in x-ray positioning. In order to address that during today's procedure I used an obstetric pannus retractor to more effectively retract her pannus from the operative field. Because of this there was significantly less soft tissue disruption during today's procedure and I did not require a conjoined tendon released to obtain access to her femoral canal, which had been necessary during the 1st surgery. Templating indicated that equalization of her leg lengths and protestant of her offset could be achieved with a standard offset stem and a +1.5 head. This should in contradistinction to her other side where I had required a high offset neck and a +12 head to achieve stability after having initially had instability with smaller sizes. Careful examination of my templating radiographs indicated that the contralateral side had likely been over reamed, presumably due to the challenges during that procedure with obtaining adequate exposure given her overlying pannus. Intraoperatively today I used the same sized cup as I had on the contralateral side. A screw had been necessary for fixation on that side and 1 was used on this side as well although I did have a good initial pinch fit. I initially trialed with a +1.5 head and a standard offset neck and had instability with maximum external rotation so I upsized to a +5 head. This appeared to be slightly long relative to the contralateral side however I felt that it was a appropriate given the initial instability with a smaller head size. Shenton's line was restored appropriately. These implants were then utilized. Procedure in Detail: This patient was seen preoperatively and evaluated for hip pain which was refractory to numerous nonoperative treatment modalities. Their hip pain correlated with radiographic changes demonstrating significant degeneration in the hip joint. The risks and benefits of continued nonoperative management versus operative management were discussed at length and all of the patient?s questions were answered. Additional educational materials providing further details beyond our discussion in clinic were provided via a publicly available patient education video which included the incidence of medical complications associated with total hip arthroplasty, reasons for revision following total hip arthroplasty, and patient satisfaction rates following total hip arthroplasty. That video can be accessed at [email or web address] . With this understanding of the risks inherent to the procedure, the patient elected to move forward with operative management. Following preoperative optimization, the patient was scheduled for surgery. The patient was met in the preoperative holding area the day of the procedure and all questions were answered. The patient?s nares were swabbed with betadine in order to decolonize them from MRSA. Informed consent was signed and the right limb was marked with indelible ink.? The patient was brought back to the operating room where anesthesia was induced. The patient was transferred to the [place] table and all bony prominences were padded. The operative site was prepped and draped in the usual sterile fashion. Prior to incision, tranexamic acid and cefazolin were administered. Operative templating images were displayed demonstrating the anticipated implant sizes and correct operative extremity. A timeout procedure was performed verifying the patient?s identity, medical comorbidities, allergies, relevant medications, anesthesia type and the surgical plan. All present were in agreement. The assistance of a physician licensed nursing assistant was required for positioning, room setup, soft tissue retraction and wound closure. Without this assistance, the procedure would have been significantly more challenging and time consuming.?? A direct anterior approach to the hip was utilized. This was performed with a longitudinal incision through a Heuter interval. The incision was planned 2 cm distal and 2 cm lateral to the ASIS extending towards the lateral patella, in line with the muscle body of the TFL. Following incision, the subcutaneous tissue was dissected while taking care to avoid injury to the lateral femoral cutaneous nerve. The fascia overlying the TFL was identified by dissecting off the overlying fat and identifying perforating vessels to the TFL. The TFL fascia was incised and dissected away from the medial border of the TFL. A cobra retractor was placed over the superior femoral neck between the abductors and the hip capsule and used to reflect the TFL laterally. A [place] self-retainer was then placed in the distal aspect of the wound between the TFL and the rectus femoris. This was tensioned to open up the direct anterior interval and the lateral circumflex vessels were identified and coagulated using electrocautery. The floor of the TFL fascia was incised, exposing the pericapsular fat overlying the hip capsule. A second cobra retractor was placed on the inferior femoral neck. A double-bent soft tissue retractor was placed on the anterior wall of the acetabulum and used to tension the reflected head of rectus femoris, which was then released in order to limit soft tissue tension. A capsulotomy was made in the midline of the anterior hip capsule in line with the femoral neck ending at the vastus tubercle. The double-bent retractor was removed in order to limit the amount of time that a soft tissue retractor remained on the anterior wall and protect the femoral nerve. Tag stitches were placed in the superior and inferior leaflets of the hip capsule. An Jori soft tissue retractor was introduced over the tag stitches and tensioned in the interval between the rectus femoris and the TFL in order to retract and protect those muscles. The cobra retractors were replaced intracapsularly, with one over the superior neck in the pocket created by the base of the greater trochanter and the other on the femoral head. The capsulotomy was extended laterally to the base of the greater trochanter and medially to the lesser trochanter. This required externally rotating the hip. Once the lesser trochanter had been identified, a neck cut was planned according to measurements from preoperative templating. A ruler was cut at the length carolin sured between the superior aspect of the lesser trochanter and the collar of the prosthesis. This line was extended towards the inferior aspect of the lateral cobra retractor to plan a cut which would leave minimal residual femoral neck laterally. The neck was cut at 60 degrees of external rotation along that line. A second cut was performed to remove a large napkin ring and facilitate head extraction. The napkin ring cut and femoral head were removed.?? A broad anterior wall retractor was placed between the labrum and the anterior capsule so that the anterior capsule would prevent capturing and pinching the femoral nerve anteriorly. An additional retractor was placed on the posterior wall. External rotation and traction were applied through the [place] table so that the cut surface of the femoral neck would not restrict access to the acetabulum. The labrum was excised sharply and the pulvinar was excised with electrocautery to limit bleeding from branches of the obturator artery. Acetabular reamers were selected based on preoperative templating and measurements of the excised femoral head. These were introduced into the acetabulum. Fluoroscopy was utilized to replicate a standing AP pelvis radiograph by centering over the pelvis, rotating until there was appropriate symmetry between the obturator foramen, and introducing caudal tilt to match the position of the pubic symphysis relative to the sacrococcygeal junction according to the patient?s anatomy. Fluoroscopy was utilized to ensure appropriate reaming depth. Once satisfied with the reaming depth corresponding to the preoperative template and the pinch fit between the columns, an appropriate sized acetabular cup was selected which would provide 1 mm of press-fit. This cup was introduced and manipulated until appropriate abduction and anteversion angles were obtained with careful attention to appropriate abduction and anteversion angles as evaluated by the position of the cup relative to the anterior and posterior jason of the acetabulum and the AP fluoroscopy which recreated the patient?s standing radiograph. The cup was impacted into place. One screw was placed to provide additional fixation. Peripheral osteophytes were removed. The acetabular liner was then placed with care to ensure locking of the locking mechanism.? Attention was then turned to the femur. All retractors were removed, traction was released, a retractor was placed in the interval between the hip capsule and the gluteus minimus, and the hip was externally rotated to 90 degrees. Traction was applied through the [place] table to tension the lateral capsule and this was released using electrocautery. Traction was released and a [place] hook was placed posteriorly around the proximal femur at the level of the vastus ridge. The table height was lowered in order to restrict the tension on the anterior structures during hip hyperextension to limit the risk of femoral nerve palsy. With traction off and the hip at 90 degrees of external rotation, the hip was hyperextended and adducted while manually elevating the femur away from the acetabulum with the [place] hook to ensure it would not be caught behind the greater trochanter. An asymmetric retractor was placed over the calcar and a broad double-pronged retractor was placed over the greater trochanter. The tag stitch capturing the lateral leaflet of the capsule was moved to the medial side, leaving the conjoined and piriformis tendons isolated in the face of the greater trochanter. The hip was externally rotated and elevated. A release of the conjoined tendon was not necessary in order to obtain adequate exposure for broaching. The canal was opened with an opening broach and a rasp was used to remove cancellous bone. A rongeur was used to remove the residual lateral bone a t the base of the greater trochanter to avoid placing the stem in varus. The femur was then broached to the appropriate sized stem yielding good rotational fit and fill of the canal as well as appropriate version of the stem trial. Neck and head trials were placed, all retractors were removed and the hip was returned to neutral abduction and extension. I then reduced the hip. Initial trialing was performed with a size 7 broach, a standard offset neck and a +1.5 head. I initially manually externally rotated the hip and found that the hip dislocated so I changed to a +5 head which resolved this instability. I then locked the hip in 45 degrees of external rotation and dropped it to the floor with traction off which demonstrated no instability. An AP pelvis fluoroscopic image matching the preoperative standing radiograph with both lesser trochanters visible and both hips in 40 degrees of external rotation demonstrated appropriate offset and slight increase in leg length as compared to the contralateral side although a long bar across the transitional line intersected both of the lesser trochanters. AP and lateral hip fluoroscopic images were obtained to evaluate the broach size which demonstrated appropriate canal fill. The hip was dislocated and I returned to the broaching position. Based on my evaluation during initial trialing I planned to place these final implants, electing to potentially leave the hip a few mm long in order to maximize stability. The definitive stem was placed and the trunnion was cleaned and dried. I placed a ceramic head onto the trunnion and impacted it into place on the [place] taper.?? All retractors were removed and the hip was reduced. A dilute mixture of betadine and peroxide was used to bathe the soft tissues during final fluoroscopic assessment. Appropriate component positioning was confirmed on an AP pelvis radiograph with the operative and nonoperative legs in 40 degrees of external rotation, evaluating leg length and offset. Appropriate stem fill was evaluated on AP and lateral hip radiographs. No fractures were identified on these radiographs. There was no hip instability with maximum (greater than 130) external rotation as well as a 45 degree drop test. The hip was copiously irrigated with pulse lavage. The capsule was closed with absorbable interrupted suture. The TFL fascia was closed with barbed suture while carefully protecting the lateral femoral cutaneous nerve from entrapment. A mixture of Ropivacaine, Epinephrine, Clonidine and Toradol was infiltrated throughout the soft tissues. The skin was closed with 2-0 and 3-0 sutures. Surgical glue was applied and a soft dressing was placed.??The sponge, instrument and needle counts were reported as being correct at the end of the case.??No obvious complications occurred. The patient was transferred from the [place] table back to a stretcher. The patient emerged from anesthesia without difficulty and was taken to the PACU in a stable condition.? Plan for aftercare: * Anterior hip precautions * Weightbearing as tolerated * Aspirin 81 twice per day for DVT prophylaxis * Patient strongly desires to return home today. We will plan to mobilize her and discharge her later today * Change into normal clothes upon arrival on the hospital floor * Mobilize in the halls as much as is logistically possible. If physical therapy is unavailable for mobilization, then patient should mobilize with nursing staff * Multimodal pain regimen with no IV opioids ordered * Apply ice machine to operative hip. Ensure that sufficient ice is in the chamber for the pad to remain cold * Follow up at [facility] in 2 weeks * Detailed postoperative instructions available at [email or web address]
[2023-12-22] MEDS: OXYCODONE IR 5 MG TABLET PO ×2 (10:50→16:12)
[2023-12-22] MEDS: IBUPROFEN 600 MG TABLET PO ×2 (11:56→17:12)
[2023-12-22] MEDS: ACETAMINOPHEN 325 MG TABLET 650 MG PO ×2 (11:56→17:12)
[2023-12-22] MEDS: LACTATED RINGERS 1,000 ML 100 ML IV (11:58)
[2023-12-22] MEDS: TRAMADOL 50 MG TABLET PO (13:19)
--- NOTE | 2023-12-22 13:19 | PM.PN.1 ---
Subjective Subjective Interval history: Patient seen postoperatively. Resting comfortably. No acute distress. Reports some pain in her groin consistent with standard postoperative pain. Sciatic nerve and femoral nerve function both intact. Ice machine in place. Dressing clean dry and intact. Plan to mobilize later this afternoon and discharge home today. Exam Vital Signs (past 8 hours): - 12/22/23 06:42 12/22/23 10:17 12/22/23 10:20 Temperature 98.1 F 98.7 F Pulse Rate 74 92 H 81 Respiratory Rate 17 18 18 Blood Pressure 126/73 83/32 L 87/46 L Pulse Oximetry 94 93 94 Oxygen Delivery Method Room Air Room Air Room Air Oxygen Flow Rate 12/22/23 10:25 12/22/23 10:30 12/22/23 10:35 Temperature Pulse Rate 85 83 80 Respiratory Rate 18 16 12 Blood Pressure 98/56 L 100/62 103/66 Pulse Oximetry 94 93 95 Oxygen Delivery Method Room Air Room Air Room Air Oxygen Flow Rate 12/22/23 10:45 12/22/23 10:55 12/22/23 11:00 Temperature Pulse Rate 81 77 75 Respiratory Rate 14 18 15 Blood Pressure 107/67 109/72 111/70 Pulse Oximetry 96 95 96 Oxygen Delivery Method Room Air Room Air Room Air Oxygen Flow Rate 12/22/23 11:05 12/22/23 11:20 12/22/23 11:50 Temperature 96.9 F L Pulse Rate 74 73 71 Respiratory Rate 11 L 10 L 12 Blood Pressure 109/82 118/69 114/62 Pulse Oximetry 96 97 98 Oxygen Delivery Method Room Air Oxygen Flow Rate 0 0 Oxygen Delivery Method Room Air Oxygen Flow Rate 0 [facility] Medical History (Updated 09/07/23 @ 14:10 by Jojo Vann RN) Osteoarthritis Rogers's palsy (~2018) Glaucoma Surgical History (Updated 12/11/23 @ 13:30 by Jojo Vann RN) History of total left hip replacement (09/15/23) Hx of tonsillectomy Hx of arthroscopy of left knee (~2003) Hx of cholecystectomy (~2001) Social History household members: spouse Smoking Status: Never smoker alcohol intake: current Assessment & Plan Time-Based Coding :: [TOTAL MINUTES] spent with patient and on the chart (including review of chart, obtaining history, exam, reviewing outside data, placing orders, documenting exam and treatment plan, and counseling patient) on [DATE]. Quality VTE Deep Vein Thrombosis/Pulmonary Embolism Present on Admission: No
--- NOTE | 2023-12-22 14:58 | PT.IIE ---
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) Hx of arthroscopy of left knee (~2003) Hx of cholecystectomy (~2001) Hx of tonsillectomy Medical History (Last Updated 09/07/23 @ 14:10 by Jojo Vann RN) Rogers's palsy (~2018) Glaucoma Osteoarthritis Physical Therapy Inpatient Evaluation/Re-Eval M1 PT/OT-IP Prior Functional Status Start: 12/22/23 12:30 Freq: NEEDED Status: Active Protocol: Document 12/22/23 15:27 DLM (Rec: 12/22/23 15:42 DL [id number]) Medical Review Prior Functional Status Medical History Reviewed Yes Diet/Fluid Consistency Regular Communication WNL, glassess at all times Mobility and Gait Independent, right hip pain was limiting Activities of Daily Living and IADL's Independent Social History Household Members spouse Living Arrangements House Number of Floors (Floors) One Floor Number of Stairs To Enter/Railing? 2 steps without rail at front, 2 taller steps with bilateral rails from garage Home Environment Standard Height Toilet,Walk in Shower Home Equipment Front Wheel Walker,Four Wheel Walker,Straight Cane,Raised Toilet Seat w/Armrests,Shower Seat with Backrest,Mechanical Lift Additional Social History Comment can sleep in recliner M2 PT-IP Current Condition Start: 12/22/23 12:30 Freq: NEEDED Status: Active Protocol: Document 12/22/23 15:27 DLM (Rec: 12/22/23 15:42 DL [id number]) Physical Therapy Current Condition Current Condition Evaluation Date 12/22/23 Treatment Diagnosis right total hip arthroplasty with anterior approach, impaired gait Onset Date 12/22/23 M3 PT-IP Subjective Start: 12/22/23 12:30 Freq: NEEDED Status: Active Protocol: Document 12/22/23 15:27 DLM (Rec: 12/22/23 15:42 DL [id number]) Subjective Physical Therapy Visit Type Type Initial Evaluation Visit Start Time 14:10 Visit Stop Time 14:58 Notes 48 min 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 Her is able to help her after surgery. She has the equipment she needs at home. She hopes to be able to go home today. Patient Goals discharge home Therapy Pain Assessment Pain When Pain Assessed During Mobility Pain Present Pain Present Pain Reported Location R hip Intensity 2 Description Aching,Tender,With Movement Pain Behaviors Guarding Pain Management Techniques Apply Cold,Re-positioning M4 PT-IP Mobility and Gait Start: 12/22/23 12:30 Freq: NEEDED Status: Active Protocol: Document 12/22/23 15:27 DLM (Rec: 12/22/23 15:42 DLM [id number]) PT-Bed Mobility Assessment Supine to Sit Supine to Sit Independent,Head of Bed Elevated Sit to Supine Sit to Supine Independent Scooting Scooting to Edge of Bed Independent PT-Transfer Assessment Sit to and From Stand Sit to and from Stand Independent,Use of Upper Extremities Equipment Transfer Assistive Device Gait Belt,4 Wheeled Walker Transfers Transfer Destination Bed,Chair,Toilet Transfer Technique Stand Step Pivot Transfer Ability Level of Assist Standby Assistance,Use of Upper Extremities Comments Mobility Comments She has her 4WW from home in her room that she wants to use . The brakes are loose on the 4WW but her reports he can fix this and they have another FWW and 4WW at home. She was able to go to the bathroom but could not urinate at this time. Gait Assessment Gait Gait Assistance Required: Standby Assistance Distance (Feet) 160 Able to Maintain Weight Bearing Status Yes During Gait Assistive Devices Assistive Device Gait Belt,4 Wheeled Walker Gait Deviations General Gait Pattern Antalgic,Flexed Trunk Factors Limiting Gait Function Factors Limiting Gait Function Decreased Activity Tolerance, Limited Range of Motion,Pain Comments Gait Comments She demonstrates safe use of the 4WW for gait. No light- headedness and no nausea this visit. Vital signs after activity: BP 112/62, HR 64 and O2 sat on room air 97%. Pt returned to bed to rest after activity. Stair Climbing Assessment Evaluation Level of Assist On Stairs Minimal Assistance,1 Person Assistance Devices Stair Climbing Assistive Devices None Technique/Endurance Stair Climbing Direction Ascend and Descend Stair Climbing Technique Step to Step Number of Steps Climbed 1 Query Text: Stair Climbing Set # Repetitions (reps) 2 Comments Stair Climbing Comments Pt using assist of Spouse since she prefers to go up the lower steps into the house that do not have rails. Pt also plans to have her Son present when she goes home. PT-Balance Assessment Sitting Balance and Reactions Static Sitting Balance Ability Normal Dynamic Sitting Balance Ability Normal Standing Balance and Reactions Static Standing Balance Ability Good Dynamic Standing Balance Ability Good Device Used 4WW M5 PT-IP Objective Assessments Start: 12/22/23 12:30 Freq: NEEDED Status: Active Protocol: Document 12/22/23 15:27 DLM (Rec: 12/22/23 15:42 DL [id number]) Orientation Orientation/Cognition Level of Alertness Alert Orientation Name,Age,Birthday,Month,Date, Year,Day of Week,Place, Situation Language Function Ability No Deficits Noted Safety Awareness Understands Safety Issues Memory Description No Deficits Noted Comments Glasses are on Gross Range of Motion Upper Extremity ROM Assessment Within Functional Limits Lower Extremity ROM Assessment Right Impaired Impairments anterior hip precautions Strength Upper Extremity Strength Assessment Within Functional Limits Lower Extremity Strength Assessment Right Impaired Hip pain with hip flexion 2+/5 Knee 4/5 Ankle DF 5/5 Coordination Assessment Gross Coordination Gross Coordination WNL Sensation Assessment Sensation Gross Sensation WNL Muscle Tone Muscle Tone WNL Yes M6 PT-IP Treatment Start: 12/22/23 12:30 Freq: NEEDED Status: Active Protocol: Document 12/22/23 15:27 DLM (Rec: 12/22/23 15:42 [facility] [id number]) Physical Therapy Treatment Exercises Exercises Ankle Pumps,Gluteal Sets,Quad Sets,Heel Slides Education Education Provided Precautions,Weight Bearing Status,Post-Op Packet,Safety Other Treatments Other Treatment Performed Her is present this visit and participate in education and training M7 PT-IP Assessment and Plan Start: 12/22/23 12:30 Freq: NEEDED Status: Active Protocol: Document 12/22/23 15:27 DLM (Rec: 12/22/23 15:42 DL [id number]) PT Summary Assessment and Plan Potential Rehabilitation Potential Excellent Status of Condition at Evaluation Evolving Summary Impairments Pain,ROM,Strength,Balance,Bed Mobility,Transfers,Gait, Activity Tolerance Progress Towards Goals Safe For Discharge Assessment Summary Samantha is alert and resting in bed. She is motivated to discharge home today, day of surgery, after right anterior total hip arthroplasty. She tolerated mobility and gait well. She was able to ambulate in the ramires safely with the 4WW. Her is present and prepared to assist her at discharge. She has not been able to urinate yet. Educated pt in her anterior hip precautions and exercises. She appears safe to discharge home when she is medically cleared. Frequency of Treatment Frequency Of Treatment Discharge Treatment Plan Other Recommendations and Next Treatment training completed this visit Focus Precautions Anterior Hip Precautions No Hip Extension,No Hip External Rotation Weight Bearing Status Weight Bearing Status Weight Bear as Tolerated Allowed Weight Bearing Amount (enter % right LE with a walker or #) (%) Recommendations To Nursing Amount of Assist Needed Standby Assistance Discharge Recommendations PT Discharge Recommendations Home with Assistance, Outpatient PT Transportation Needs at Discharge Private Vehicle
== END 2023-12-22 16:40 | disposition home or self-care (01) ==
LOC: OR 06:05 → AC 06:06
PROVIDERS: PCP Family Medicine; Referring Provider Orthopaedic Surgery Sports Medicine; Visit Provider Orthopaedic Surgery Adult Reconstructive Orthopaedic Surgery
PROC: (CPT 27130; principal; 2023-12-22 07:45)
DX: M16.11 Unilateral primary osteoarthritis, right hip (principal); M25.751 Osteophyte, right hip
CPT/HCPCS: 27130; 73502; 76000; 97110; 97162; C1776; J0690; J2250; J2405; J2704